=== PATIENT | male | born 1955 | race Caucasian/White ===

== ENCOUNTER 2020-01-03 06:01 | Emergency (ER) | payer BC ==
[~2020-01-03] VITALS: Ht 177.8 cm; Wt 82.1 kg
[2020-01-03] MEDS ORDERED: OMEPRAZOLE (06:08)
[2020-01-03] MEDS ORDERED: METFORMIN (06:08)
[2020-01-03] MEDS ORDERED: AMIT10TA PO (06:08)
[2020-01-03] MEDS ORDERED: KETOROLAC 30 MG/1 ML ONE (06:28)
[2020-01-03] MEDS ORDERED: MORPHINE SULFATE 4 MG/ML, 1ML ONE (06:28)
[2020-01-03] MEDS ORDERED: ONDANSETRON 2MG/ML, 2ML ONE (06:29)
[2020-01-03] MEDS ORDERED: SODIUM CHLORIDE FLUSH 10ML SYR IVF ONE (06:30)
[2020-01-03] MEDS ORDERED: ONDANSETRON 2MG/ML, 2ML IVPush ONE (06:30)
[2020-01-03] MEDS ORDERED: MORPHINE SULFATE 4 MG/ML, 1ML IVPush PRN (06:30)
[2020-01-03] MEDS ORDERED: KETOROLAC 30 MG/1 ML IVPush ONE (06:30)
--- NOTE | 2020-01-03 06:33 | NUR ---
URINE SAMPLE SENT. PT TO CT
--- NOTE | 2020-01-03 06:48 | NUR ---
IV SITE STARTED, LABS DRAWN AND SENT. PT MEDICATED PER MAR
[2020-01-03 06:56] LABS: MICROSCOPIC INDICATED
--- NOTE | 2020-01-03 06:58 | NUR ---
report given to axel ruth
[2020-01-03 07:00] LABS: BASOPHILS # (AUTO) 0.03 x10^3/uL (0-0.1); BASOPHILS % (AUTO) 1 % (0-1); EOSINOPHILS # (AUTO) 0.13 x10^3/uL (0-0.4); EOSINOPHILS % (AUTO) 2 % (1-7); LYMPHOCYTES % (AUTO) 34 % (22-44); MD NO; MEAN CORPUSCULAR HEMOGLOBIN 30.3 pg (27.5-34.5); MEAN CORPUSCULAR HGB CONC 32.5 g/dL (33.2-36.2); MEAN CORPUSCULAR VOLUME 93.2 fL (81-97); MEAN PLATELET VOLUME 9.9 fL (7.4-10.4); MONOCYTES # (AUTO) 0.63 x10^3/uL (0.2-0.8); MONOCYTES % (AUTO) 10 % (2-9); NEUTROPHILS # (AUTO) 3.22 x10^3/uL (1.8-6.8); NEUTROPHILS % (AUTO) 53 % (42-75); PLATELET COUNT 208 x10^3/uL (130-400); RED BLOOD COUNT 4.99 x10^6/uL (4.38-5.82); RED CELL DISTRIBUTION WIDTH 13.8 % (9.4-14.8)
--- NOTE | 2020-01-03 07:08 | NUR ---
REPORT RECEIVED. PT STATES PAIN LEVEL DECREASED, MEDICATIONS EFFECTIVE. PT REMAINS ON MONITORS, VSS. AWAITING ALL RESULTS. CALL LIGHT IN REACH, CONT TO MONITOR.
[2020-01-03 07:13] LABS: ALANINE AMINOTRANSFERASE 27 U/L (12-78); ALBUMIN 3.9 g/dL (3.4-5.0); ANION GAP 5 mmol/L (5-15); CALCIUM 9.2 mg/dL (8.5-10.1); CHLORIDE 107 mmol/L (98-107); CREATININE 1.29 mg/dL (0.7-1.3)
[2020-01-03 07:16] LABS: ALKALINE PHOSPHATASE 107 U/L (45-117); BILIRUBIN,TOTAL 0.7 mg/dL (0.2-1.0); TOTAL PROTEIN 7.4 g/dL (6.4-8.2)
[2020-01-03 08:34] VITALS: BP 139/90
== END 2020-01-03 08:36 | disposition home or self-care (01) ==
LOC: ED 06:39
DX: N13.2 Hydronephrosis with renal and ureteral calculous obstruction (principal); N23 Unspecified renal colic; I10 Essential (primary) hypertension; E11.9 Type 2 diabetes mellitus without complications
CPT/HCPCS: 36415; 74176; 80053; 81001; 85025; 96374; 96375; 99284; J1885; J2270; J2405